=== PATIENT | male | born 1985 | race Caucasian/White ===

== ENCOUNTER 2017-09-03 16:47 | Outpatient (CLI) | payer OTHER | END 2017-09-03 16:48 | disposition home or self-care (01) | LOC: LAB 16:47 | PROVIDERS: ATTEND Nurse Practitioner Obstetrics & Gynecology | DX: Z01.89 Encounter for other specified special examinations (principal) | CPT/HCPCS: 36415; 81220; 81599 ==

== ENCOUNTER 2018-04-01 18:52 | Emergency (ER) | payer OTHER ==
[2018-04-01] MEDS ORDERED: ASPIRIN CHEW 81 MG TABLET PO STA (20:08)
[2018-04-01] MEDS ORDERED: SODIUM CHLORIDE 0.9% 1,000 ML IV ONE (20:08)
--- NOTE | 2018-04-01 20:38 | XRAY Report ---
Procedure Date: 04/01/2018 Accession Number: [id number] / [id number] Procedure: XR - Chest 2 View X-Ray CPT Code: 23684 FULL RESULT: EXAM: CHEST RADIOGRAPHY EXAM DATE: 04/01/2018 08:24 PM. CLINICAL HISTORY: CP. COMPARISON: None. TECHNIQUE: 2 views. FINDINGS: Lungs/Pleura: No dense consolidation. No large effusion or pneumothorax. No pulmonary edema. Mediastinum: Heart and mediastinal contours are unremarkable. Other: None. IMPRESSION: No acute radiographic pulmonary abnormalities. RADIA
[2018-04-01 20:39] LABS: BASOPHILS # (AUTO) 0.1 10^3/uL (0.0-0.1); BASOPHILS % (AUTO) 0.6 %; EOSINOPHILS % (AUTO) 0.2 %; HGB - HEMOGLOBIN 16.5 g/dL (14.0-18.0); LYMPHOCYTES % (AUTO) 22.8 %; MEAN CORPUSCULAR HEMOGLOBIN 30.2 pg (27.0-31.0); MEAN CORPUSCULAR HGB CONC 34.4 g/dL (32.0-36.0); MEAN PLATELET VOLUME 7.6 fL (7.4-11.4); MONOCYTES # (AUTO) 0.4 10^3/uL (0.0-1.0); MONOCYTES % (AUTO) 4.7 %; NEUTROPHILS # (AUTO) 6.4 10^3/uL (1.5-6.6); NEUTROPHILS % (AUTO) 71.7 %; PLT - PLATELET COUNT 239 10^3/uL (130-450); RED BLOOD COUNT 5.46 10^6/uL (4.70-6.10); RED CELL DISTRIBUTION WIDTH 13.7 % (12.0-15.0)
[2018-04-01 20:54] LABS: ALBUMIN 4.7 g/dL (3.2-5.5); ALBUMIN/GLOBULIN RATIO 1.4 (1.0-2.2); BILIRUBIN,TOTAL 1.2 mg/dL (0.2-1.0); CALCIUM 9.4 mg/dL (8.5-10.3); CREATININE 0.9 mg/dL (0.6-1.2); TOTAL PROTEIN 8.1 g/dL (6.7-8.2)
--- NOTE | 2018-04-01 22:08 | ED Physician Documentation ---
History of Present Illness - Stated complaint Stated Complaint: CHEST PX - Chief complaint Chief Complaint: Cardiac - History obtained from History obtained from: Patient - Additonal information Additional information: 32-year-old male presents the emergency department with 2 days of chest pressure. The patient's symptoms started at rest. The patient's symptoms have worsened today and the patient reports episodes of feeling dizzy and short of breath. The patient denies radiation of the pain. No relieving factors or specific triggering factors. The patient denies abdominal pain. No recent dyspnea on exertion or URI symptoms. Symptoms are described as moderate. No other associated symptoms Review of Systems Constitutional: denies: Fever, Chills Eyes: denies: Discharge Ears: denies: Ear pain Nose: denies: Congestion Throat: denies: Sore throat Cardiac: reports: Chest pain / pressure. denies: Pedal edema Respiratory: reports: Dyspnea. denies: Cough GI: denies: Abdominal Pain : denies: Dysuria Skin: denies: Rash Musculoskeletal: denies: Neck pain Neurologic: denies: Generalized weakness, Headache Immunocompromised: denies: Chemotherapy PD PAST MEDICAL HISTORY - Past Medical History Past Medical History: Yes Respiratory: Asthma Endocrine/Autoimmune: None GI: None : None Psych: None Musculoskeletal: None - Present Medications Home Medications: Ambulatory Orders Medication Instructions Recorded Confirmed No Known Home Medications [No 04/01/18 04/01/18 Known Home Medications] - Allergies Allergies/Adverse Reactions: Allergies Allergy/AdvReac Type Severity Reaction Status Date / Time No Known Drug Allergies Allergy Verified 04/01/18 19:04 - Social History Does the pt smoke?: No Smoking Status: Never smoker Does the pt drink ETOH?: Yes ETOH Use: Beer, Liquor Does the pt have substance abuse?: No Substance Use and Type: Marijuana - Immunizations Immunizations: TDAP current <10years PD ED PE NORMAL - General General: Alert and oriented X 3, No acute distress, Well developed/nourished - HEENT HEENT: Atraumatic, PERRL, EOMI, Ears normal - Neck Neck: Supple, no meningeal sign - Cardiac Cardiac: RRR, Strong equal pulses - Respiratory Respiratory: No respiratory distress, Clear bilaterally - Abdomen Abdomen: Soft, Non tender, Non distended - Derm Derm: Normal color, No rash - Extremities Extremities: No deformity, No edema - Neuro Neuro: Alert and oriented X 3, Normal speech - Psych Psych: Normal mood Results - Vitals Vitals: Vital Signs - 24 hr 04/01/18 04/01/18 04/01/18 18:59 20:07 22:14 Temperature 36.3 C L Heart Rate 78 66 67 Respiratory 16 20 16 Rate Blood Pressure 143/103 H 134/80 H 144/95 H O2 Saturation 98 100 99 04/01/18 22:25 Temperature Heart Rate 62 Respiratory 16 Rate Blood Pressure 144/95 H O2 Saturation 100 Oxygen O2 Source Room air - EKG (time done) No standard instances Rhythm: NSR Intervals: Normal GA, QRS normal Ischemia: Normal ST segments Other comments: Other comments (Normal sinus rhythm without acute ischemic changes) - Labs Labs: Laboratory Tests 04/01/18 04/01/18 04/01/18 20:30 20:30 20:30 WBC 9.0 RBC 5.46 Hgb 16.5 Hct 48.1 MCV 88.0 MCH 30.2 MCHC 34.4 RDW 13.7 Plt Count 239 MPV 7.6 Neut # (Auto) 6.4 Lymph # (Auto) 2.0 [place] # (Auto) 0.4 Eos # (Auto) 0.0 Baso # (Auto) 0.1 Absolute Nucleated RBC 0.00 Nucleated RBC % 0.0 D-Dimer Sodium 138 Potassium 3.5 Chloride 105 Carbon Dioxide 25 Anion Gap 8.0 BUN 10 Creatinine 0.9 Estimated GFR (MDRD) 99 Glucose 100 Calcium 9.4 Total Bilirubin 1.2 H AST 22 ALT 20 Alkaline Phosphatase 60 Troponin I < 0.04 Total Protein 8.1 Albumin 4.7 Globulin 3.4 Albumin/Globulin Ratio 1.4 Lipase 32 04/01/18 04/01/18 20:30 22:08 WBC RBC Hgb Hct MCV MCH MCHC RDW Plt Count MPV Neut # (Auto) Lymph # (Auto) [place] # (Auto) Eos # (Auto) Baso # (Auto) Absolute Nucleated RBC Nucleated RBC % D-Dimer < 200.0 L Sodium Potassium Chloride Carbon Dioxide Anion Gap BUN Creatinine Estimated GFR (MDRD) Glucose Calcium Total Bilirubin AST ALT Alkaline Phosphatase Troponin I < 0.04 Total Protein Albumin Globulin Albumin/Globulin Ratio Lipase - Rads (name of study) CXR Radiology: Final report received PD MEDICAL DECISION MAKING - ED course ED course: The patient's workup included 2 EKGs both of which were nonischemic, 2 negative troponins, negative d-dimer, negative chest x-ray. The patient's heart score places him into a low risk category and the patient appears appropriate for discharge and further workup as an outpatient. I advised that the patient would benefit from an outpatient stress test and echocardiogram. The patient understands and agrees. I discussed warning signs and recommended returning to the emergency department immediately for worsening or any concerns - Sepsis Event Vital Signs: Vital Signs - 24 hr 04/01/18 04/01/18 04/01/18 18:59 20:07 22:14 Temperature 36.3 C L Heart Rate 78 66 67 Respiratory 16 20 16 Rate Blood Pressure 143/103 H 134/80 H 144/95 H O2 Saturation 98 100 99 04/01/18 22:25 Temperature Heart Rate 62 Respiratory 16 Rate Blood Pressure 144/95 H O2 Saturation 100 Oxygen O2 Source Room air Departure - Departure Disposition: 01 Home, Self Care Clinical Impression: Chest pain Qualifiers: Chest pain type: unspecified Qualified Code(s): R07.9 - Chest pain, unspecified Condition: Good Instructions: ED Chest Pain [facility] Comments: Please follow-up with your primary care physician on Wednesday for recheck. Please asked them to arrange for an outpatient echocardiogram and stress test to further evaluate your symptoms. Please return to the emergency department immediately for worsening symptoms or any concerns
[2018-04-01 22:15] VITALS: BP 144/95
== END 2018-04-01 22:45 | disposition home or self-care (01) ==
LOC: ED 18:52
DX: R07.9 Chest pain, unspecified (principal)
CPT/HCPCS: 36415; 71046; 80053; 83690; 84484; 85025; 85379; 93005; 96360; 96361; 99284; A9270

== ENCOUNTER 2020-03-11 14:40 | Outpatient (CLI) | payer OTHER ==
[2020-03-11 20:03] LABS: BASOPHILS % (AUTO) 0.5 %; EOSINOPHILS # (AUTO) 0.1 10^3/uL (0.0-0.7); EOSINOPHILS % (AUTO) 1.5 %; HGB - HEMOGLOBIN 16.6 g/dL (14.0-18.0); LYMPHOCYTES # (AUTO) 2.4 10^3/uL (1.5-3.5); LYMPHOCYTES % (AUTO) 35.4 %; MEAN CORPUSCULAR HEMOGLOBIN 30.1 pg (27.0-31.0); MEAN CORPUSCULAR HGB CONC 34.2 g/dL (32.0-36.0); MEAN CORPUSCULAR VOLUME 87.9 fL (80.0-94.0); MEAN PLATELET VOLUME 9.9 fL (7.4-11.4); MONOCYTES # (AUTO) 0.5 10^3/uL (0.0-1.0); MONOCYTES % (AUTO) 7.4 %; NEUTROPHILS # (AUTO) 3.7 10^3/uL (1.5-6.6); NEUTROPHILS % (AUTO) 54.9 %; PLT - PLATELET COUNT 245 10^3/uL (130-450); RED BLOOD COUNT 5.52 10^6/uL (4.70-6.10); RED CELL DISTRIBUTION WIDTH 13.3 % (12.0-15.0); WHITE BLOOD COUNT 6.6 x10^3/uL (4.8-10.8)
[2020-03-11 20:22] LABS: ALBUMIN 4.7 g/dL (3.2-5.5); ALBUMIN/GLOBULIN RATIO 1.5 (1.0-2.2); BILIRUBIN,TOTAL 1.1 mg/dL (0.2-1.0); CALCIUM 9.6 mg/dL (8.5-10.3); MAGNESIUM 2.3 mg/dL (1.7-2.8); TOTAL PROTEIN 7.8 g/dL (6.7-8.2)
== END 2020-03-11 14:41 | disposition home or self-care (01) ==
LOC: LAB.S 14:40
PROVIDERS: ATTEND Physician Assistant Medical
DX: R07.89 Other chest pain (principal)
CPT/HCPCS: 36415; 80053; 83735; 84443; 85025

== ENCOUNTER 2020-03-11 17:21 | Outpatient (CLI) | payer OTHER ==
--- NOTE | 2020-03-11 17:22 | XRAY Report ---
PROCEDURE: Chest 2 View X-Ray INDICATIONS: ATYPICAL CHEST PAIN TECHNIQUE: 2 view(s) of the chest. COMPARISON: Chest x-ray 04/01/2018 FINDINGS: Surgical changes and devices: None. Lungs and pleura: No pleural effusions or pneumothorax. Lungs are clear. Mediastinum: Mediastinal contours are normal. Heart size is normal. Bones and chest wall: No suspicious bony abnormalities. Soft tissues appear unremarkable. IMPRESSION: No acute pulmonary process. Reviewed by: Jossie Miller MD on 03/11/2020 5:21 PM PDT Approved by: Jossie Miller MD on 03/11/2020 5:21 PM PDT Station ID: [id number]
== END 2020-03-11 23:59 | disposition home or self-care (01) ==
LOC: DI.S 17:21
PROVIDERS: ATTEND Physician Assistant Medical
DX: R07.89 Other chest pain (principal); J45.909 Unspecified asthma, uncomplicated; R07.9 Chest pain, unspecified
CPT/HCPCS: 36415; 71046; 80053; 83735; 84443; 85025

== ENCOUNTER 2020-05-20 09:04 | Outpatient (CLI) | payer OTHER ==
[2020-05-20 15:32] LABS: CHOL/HDL RATIO 4.3 (<5.0); CHOLESTEROL 204 mg/dL; HDL CHOLESTEROL 47 mg/dL; LDL CHOLESTEROL,CALCULATED 137 mg/dL; LDL/HDL RATIO 2.9 (<3.6); VLDL CHOLESTEROL 20 mg/dL
== END 2020-05-20 09:05 | disposition home or self-care (01) ==
LOC: LAB.S 09:04
PROVIDERS: ATTEND Physician Assistant
DX: Z83.49 Family history of other endocrine, nutritional and metabolic diseases (principal); Z82.49 Family history of ischemic heart disease and other diseases of the circulatory system
CPT/HCPCS: 36415; 80061; 83721

== ENCOUNTER 2021-08-12 08:00 | Outpatient (CLI) | payer OTHER ==
--- NOTE | 2021-08-12 17:43 | XRAY Report ---
PROCEDURE: Cervical Spine 2 View INDICATIONS: NUMBNESS AND TINGLING, LEFT ARM TECHNIQUE: 3 view(s) of the cervical spine were acquired. COMPARISON: None. FINDINGS: Bones: No fractures or dislocations to the T1 level. The lateral masses of C1 appear intact on the odontoid view. No suspicious bony lesions. Soft tissues: No prevertebral soft tissue swelling. IMPRESSION: No acute abnormality of the cervical spine Reviewed by: Brian Plummer on 08/12/2021 5:41 PM [facility] Approved by: Brian Plummer on 08/12/2021 5:41 PM [facility] Station ID: [id number]
== END 2021-08-12 23:59 | disposition home or self-care (01) ==
LOC: DI.S 08:00
PROVIDERS: ATTEND Emergency Medicine
DX: R20.0 Anesthesia of skin (principal); R20.2 Paresthesia of skin

== ENCOUNTER 2021-09-02 10:57 | Outpatient (CLI) | payer OTHER ==
--- NOTE | 2021-09-02 17:01 | XRAY Report ---
PROCEDURE: Wrist 3 View RT INDICATIONS: COLLES FX OF R RADIUS TECHNIQUE: 3 views of the wrist were acquired. COMPARISON: 08/30/2021 FINDINGS: Bones: Again noted is impacted and minimally displaced intra-articular fracture involving distal radi us with dorsally displaced fractured fragment. Overall wrist alignment is unchanged from prior study. No new fracture or dislocation. No suspicious bony lesions. Scaphoid view: Scaphoid is intact. Soft tissues: No suspicious soft tissue calcifications. IMPRESSION: Stable appearing minimally displaced and impacted intra-articular fracture of distal radius unchanged from prior study. Reviewed by: Sorin Michael MD on 09/02/2021 4:59 PM PST Approved by: Sorin Michael MD on 09/02/2021 4:59 PM PST Station ID: [id number]
== END 2021-09-02 23:59 | disposition home or self-care (01) ==
LOC: DI.N 10:57
PROVIDERS: ATTEND Physician Assistant
DX: S52.531D Colles' fracture of right radius, subsequent encounter for closed fracture with routine healing (principal)

== ENCOUNTER 2021-09-04 07:41 | Day surgery (SDC) | payer OTHER ==
[2021-09-04] MEDS ORDERED: CELECOXIB 100 MG CAPSULE PO ONE (07:56)
[2021-09-04] MEDS ORDERED: ACETAMINOPHEN 1,000 MG/100 ML 100 ML IV ONE (07:56)
[2021-09-04] MEDS ORDERED: CEFAZOLIN SODIUM IN 0.9 % NACL 2 GM/100 ML BAG IV ONE (07:56)
[2021-09-04] MEDS ORDERED: LACTATED RINGERS 1,000 ML IV ONE (08:13)
[2021-09-04] MEDS ORDERED: KETOROLAC 15 MG/ML VIAL IVP STA (08:27)
[2021-09-04] MEDS ORDERED: oxyCODONE 5 MG TABLET PO PRN (08:27)
[2021-09-04] MEDS ORDERED: HYDROmorphone 0.5 MG/0.5 ML SYRINGE IVP PRN (08:30)
[2021-09-04] MEDS ORDERED: METOCLOPRAMIDE 10 MG/2 ML VIAL IVP PRN (08:30)
[2021-09-04] MEDS ORDERED: fentaNYL 100 MCG/2 ML VIAL IVP PRN (08:30)
[2021-09-04] MEDS ORDERED: NALOXONE 0.4 MG/ML VIAL IVP PRN (08:30)
[2021-09-04] MEDS ORDERED: ATROPINE ABBOJECT 1 MG/10 ML SYRINGE IVP PRN (08:30)
[2021-09-04] MEDS ORDERED: ePHEDrine 50 MG/ML VIAL IVP PRN (08:30)
[2021-09-04] MEDS ORDERED: MORPHINE 2 MG/ML CARPUJECT IVP PRN (08:30)
[2021-09-04] MEDS ORDERED: ONDANSETRON 4 MG/2 ML VIAL IVP PRN (08:30)
--- NOTE | 2021-09-04 08:30 | ANESTHESIA ---
Pre-Anesthesia VS, & Labs - Diagnosis R wrist fracture - Procedure R distal radius pinning Vital Signs: Temp Pulse Resp BP Pulse Ox 36.4 C L 68 16 143/92 H 95 09/04/21 08:13 09/04/21 08:13 09/04/21 08:13 09/04/21 08:13 09/04/21 08:13 Height: 6 ft 4 in Weight (kg): 110 kg Body Mass Index: 29.5 BMI Classification: Overweight - NPO >8 hours Home Medications and Allergies Home Medications: Ambulatory Orders Gabapentin [Neurontin] 600 mg PO DAILY 09/03/21 Losartan Potassium 25 mg PO DAILY 09/03/21 Gabapentin [Neurontin] 600 mg PO DAILY 09/03/21 Losartan Potassium 25 mg PO DAILY 09/03/21 Allergies/Adverse Reactions: Allergies Allergy/AdvReac Type Severity Reaction Status Date / Time No Known Drug Allergies Allergy Verified 08/30/21 16:23 Anes History & Medical History - Anesthetic History Anesthesia Complications: reports: No previous complications Family history of Anesthesia Complications: Denies Family history of Malignant Hyperthermia: Denies - Medical History Cardiovascular: reports: Hypertension Pulmonary: reports: Asthma Gastrointestinal: reports: None Urinary: reports: None Musculoskeletal: reports: None Endocrine/Autoimmune: reports: None Blood Disorders: reports: None Smoking Status: Never smoker Exam General: Alert, Oriented x3, Cooperative Dental: WNL Mouth Openin Fingerbreadth Neck Mobility: Normal Mallampati classification: I Thyromental Distance: 4-6 cm Respiratory: Lungs clear Cardiovascular: Regular rate Plan Anesthesia Type: General, Interscalene Block Regional Block: Per Surgeon's request for Post Op pain control Consent for Procedure(s) Verified and Reviewed: Yes Code Status: Attempt Resuscitation ASA classification: 2-Mild systemic disease Is this case an emergency?: No
[2021-09-04] MEDS ORDERED: BUPIVACAINE 0.5% PF 10 ML VIAL ONE (08:38)
[2021-09-04] MEDS ORDERED: fentaNYL 100 MCG/2 ML VIAL ONE (08:48)
[2021-09-04] MEDS ORDERED: PROPOFOL 200 MG/20 ML VIAL IVP ONE (08:48)
[2021-09-04] MEDS ORDERED: MIDAZOLAM 2 MG/2 ML VIAL ONE (08:48)
[2021-09-04] MEDS ORDERED: DEXAMETHASONE 4 MG/ML VIAL ONE (08:48)
[2021-09-04] MEDS ORDERED: ROPIVACAINE 0.5% PF 20 ML AMPULE ONE (08:49)
[2021-09-04] MEDS ORDERED: LACTATED RINGERS 1,000 ML IV SCH (09:00)
[2021-09-04] MEDS ORDERED: ONDANSETRON 4 MG/2 ML VIAL ONE (09:39)
--- NOTE | 2021-09-04 09:48 | OPERATIVE REPORT ---
Operative Report - General Procedure Date: 09/04/21 Planned Procedure: Closed reduction right distal radius fracture with percutaneous pinning right wrist Pre-Op Diagnosis: Closed, displaced fracture right distal radius Procedure Performed: Closed reduction right distal radius with percutaneous pinning right wrist Post Op Diagnosis: Same as preoperative diagnosis - Procedure Note Primary Surgeon: Wilfrido Garcia MD Secondary Surgeon: Akira KEITA Anesthesia Provider: Mila Gonzalez CRNA Anesthesia Technique: MAC, Regional block Estimated Blood Loss (mL): 1 Indications: This is a 36-year-old man, [id number] with a history of fall and injury to right distal radius. He had a significantly displaced right distal radius fracture. This was treated with a closed reduction in the emergency room with marked improvement in alignment. He is placed in a splint. On follow-up radiographs there was some early loss the reduction to his right distal radius fracture. The fracture was primarily extra-articular but there might have been a intra-articular component as well in the radial lunate and radial ulnar region. Findings: His displaced fracture of the right distal radius seem to align well with traction to the right forearm with some palmar flexion and ulnar deviation. The radiocarpal joint. Congruent and the radial ulnar joint. Complications: None - Other Other Information/Narrative: The patient was brought to the operating room and was placed in a supine position with the right arm on a arm extension table. He received a regional block with supplemental sedation. The right upper extremity was prepped and draped in a sterile manner in the usual fashion. The C-arm image intensifier was utilized and covered with a sterile drape. A timeout procedure was performed by the entire operating room team and all were in agreement. Finger traps were applied to all 5 fingers and a traction bow as well. Longitudinal traction was applied, direct manipulation of the fracture site over a sterile bump. The C-arm image intensifier showed good alignment and a percutaneous pinning was performed with 0.062 K wires. The bare area of the radial styloid was engaged and pin was inserted from the styloid across the fracture to achieve bicortical fixation. An additional K wire from the radial styloid was also inserted to provide 2 bicortical K wires from the radial styloid. 1 additional K wire were inserted from the ulnar corner of the distal radius distally and this was driven from distal to proximal and ulnar to radial. Biplanar and oblique imaging was obtained and there was good alignment of the fixation and fracture. The K wires were cut external to skin and covered with sterile balls. A well-padded short arm fiberglass splint was applied with gauze padding around the K wires. He tolerated the procedure well. No tourniquet was utilized.A physician admissions assistant was utilized and felt to be medically necessary to help with reduction and traction of the fracture of the right distal radius. The physician admissions assistant also applied the short arm fiberglass splint.
[2021-09-04] MEDS ORDERED: LACTATED RINGERS 200 ML IV ONE (09:59)
--- NOTE | 2021-09-04 10:11 | OPERATIVE REPORT ---
Operative Report - General Procedure Date: 09/04/21
[2021-09-04 11:02] VITALS: BP 130/86
--- NOTE | 2021-09-04 13:06 | ANESTHESIA POST OP EVALUATION ---
Anesthesia Post Eval - Post Anesthesia Eval Vitals: Last Vital Signs Temp 36.3 C L 09/04/21 10:50 Pulse 58 L 09/04/21 10:50 Resp 14 09/04/21 10:50 BP 130/86 H 09/04/21 10:50 Pulse Ox 96 09/04/21 10:50 CV Function Including HR & BP: Stable Pain Control: Satisfactory Nausea & Vomiting: Negative Mental Status: Baseline Respiratory Status: Airway Patent Hydration Status: Satisfactory Anesthesia Complications: None
--- NOTE | 2021-09-04 17:15 | XRAY Report ---
PROCEDURE: OR C-Arm Procedure INDICATIONS: closed reduction, perc pinning distal radius fx TECHNIQUE: 2 intraoperative images were acquired. COMPARISON: None. FINDINGS: Intraoperative fluoroscopic images demonstrate distal radial pin fixation. There is good anatomic ali gnment. IMPRESSION: Distal radial fixation. Reviewed by: Jossie Miller MD on 09/04/2021 5:14 PM PST Approved by: Jossie Miller MD on 09/04/2021 5:14 PM [facility] Station ID: [id number]
== END 2021-09-04 07:42 | disposition home or self-care (01) ==
LOC: SDS 07:41
PROVIDERS: ATTEND Orthopaedic Surgery
DX: S52.531A Colles' fracture of right radius, initial encounter for closed fracture (principal); Z87.891 Personal history of nicotine dependence
CPT/HCPCS: 25606; A9270; C1713; J0131; J0690; J7120

== ENCOUNTER 2021-09-24 13:34 | Outpatient (CLI) | payer OTHER ==
--- NOTE | 2021-09-24 17:44 | XRAY Report ---
PROCEDURE: Wrist 3 View RT INDICATIONS: F/U FX OF RIGHT RADIUS TECHNIQUE: 3 views of the wrist were acquired. COMPARISON: 09/02/2021 FINDINGS: Bones: 3 K wires have been placed for internal fixation of distal radius fracture.. Distal radius fra cture is in near-anatomic alignment. Soft tissues: No suspicious soft tissue calcifications. IMPRESSION: Distal radius fracture in near-anatomic alignment following internal fixation. Reviewed by: Chiara Langley MD, PhD on 09/24/2021 5:42 PM PST Approved by: Chiara Langley MD, PhD on 09/24/2021 5:42 PM PST Station ID: [id number]
== END 2021-09-24 23:59 | disposition home or self-care (01) ==
LOC: DI.S 13:34
PROVIDERS: ATTEND Physician Assistant Medical
DX: S52.531D Colles' fracture of right radius, subsequent encounter for closed fracture with routine healing (principal)

== ENCOUNTER 2021-09-26 14:10 | Outpatient (CLI) | payer OTHER ==
[2021-09-26 19:52] LABS: BASOPHILS # (AUTO) 0.1 10^3/uL (0.0-0.1); BASOPHILS % (AUTO) 1.2 %; EOSINOPHILS % (AUTO) 0.7 %; HCT - HEMATOCRIT 44.2 % (42.0-52.0); HGB - HEMOGLOBIN 15.6 g/dL (14.0-18.0); LYMPHOCYTES # (AUTO) 2.5 10^3/uL (1.5-3.5); LYMPHOCYTES % (AUTO) 41.9 %; MEAN CORPUSCULAR HEMOGLOBIN 30.9 pg (27.0-31.0); MEAN CORPUSCULAR HGB CONC 35.3 g/dL (32.0-36.0); MEAN CORPUSCULAR VOLUME 87.5 fL (80.0-94.0); MEAN PLATELET VOLUME 10.3 fL (7.4-11.4); MONOCYTES # (AUTO) 0.3 10^3/uL (0.0-1.0); MONOCYTES % (AUTO) 4.3 %; NEUTROPHILS % (AUTO) 51.7 %; PLT - PLATELET COUNT 252 10^3/uL (130-450); RED BLOOD COUNT 5.05 10^6/uL (4.70-6.10); WHITE BLOOD COUNT 5.9 x10^3/uL (4.8-10.8)
[2021-09-26 20:16] LABS: ALBUMIN 4.8 g/dL (3.2-5.5); ALBUMIN/GLOBULIN RATIO 1.8 (1.0-2.2); BILIRUBIN,TOTAL 0.9 mg/dL (0.2-1.0); CALCIUM 9.6 mg/dL (8.5-10.3); CREATININE 0.8 mg/dL (0.6-1.2); POTASSIUM 3.5 mmol/L (3.5-5.0); TOTAL PROTEIN 7.5 g/dL (6.7-8.2)
[2021-09-30 14:06] LABS: ANA SCREEN NEGATIVE (NEGATIVE)
== END 2021-09-26 14:11 | disposition home or self-care (01) ==
LOC: LAB.S 14:10
PROVIDERS: ATTEND Internal Medicine
DX: I10 Essential (primary) hypertension (principal); R20.0 Anesthesia of skin
CPT/HCPCS: 36415; 80053; 82607; 84207; 84425; 85025; 86038

== ENCOUNTER 2021-10-07 11:36 | Outpatient (CLI) | payer OTHER ==
--- NOTE | 2021-10-07 16:30 | XRAY Report ---
PROCEDURE: Wrist 3 View RT INDICATIONS: WRIST FX AND PINNING TECHNIQUE: 3 views of the wrist were acquired. COMPARISON: 09/24/2021 FINDINGS: When comparison with the prior study there is no significant interval change. A lucency representing the transverse fractures of the distal radial metaphysis is not significantly changed in appearance. No additional fracture identified. Radiocarpal alignment is normal. IMPRESSION: No significant interval change. No SPECT evidence of significant interval healing. Reviewed by: Adilson Perales MD on 10/07/2021 4:29 PM PST Approved by: Adilson Perales MD on 10/07/2021 4:29 PM PST Station ID: [id number]
== END 2021-10-07 11:37 | disposition home or self-care (01) ==
LOC: DI.WOS 11:36
PROVIDERS: ATTEND Physician Assistant
DX: S52.531D Colles' fracture of right radius, subsequent encounter for closed fracture with routine healing (principal)

== ENCOUNTER 2021-10-27 08:03 | Outpatient (CLI) | payer OTHER ==
--- NOTE | 2021-10-27 13:55 | XRAY Report ---
PROCEDURE: Wrist 3 View RT INDICATIONS: WRIST FX POST PINN REMOVAL TECHNIQUE: 3 views of the wrist were acquired. COMPARISON: X-ray wrist 09/24/2021, 08/30/2021 FINDINGS: Bones: There is continued interval healing with stable alignment of distal radial fracture. Surgical hardware has been removed. Soft tissues: No suspicious soft tissue calcifications. IMPRESSION: Stable alignment with continued interval healing of distal radial fracture. Reviewed by: Jossie Miller MD on 10/27/2021 1:54 PM PST Approved by: Jossie Miller MD on 10/27/2021 1:54 PM PST Station ID: [id number]
== END 2021-10-27 08:04 | disposition home or self-care (01) ==
LOC: DI.WOS 08:03
PROVIDERS: ATTEND Physician Assistant
DX: S52.531D Colles' fracture of right radius, subsequent encounter for closed fracture with routine healing (principal)

== ENCOUNTER 2021-11-19 08:31 | Outpatient (CLI) | payer OTHER ==
[2021-11-19] MEDS ORDERED: GADOBUTROL 10 MMOL/10 ML VIAL ONE (09:24)
--- NOTE | 2021-11-19 13:41 | MRI Report ---
PROCEDURE: Brain W/WO INDICATIONS: FACIAL NUMBNESS CONTRAST: IV CONTRAST: Gadavist ml: 10 TECHNIQUE: Noncontrast axial T1 spin echo, axial T2 fast spin echo, sagittal and axial FLAIR, coronal T2 fast sp in echo, axial gradient echo, axial diffusion and ADC through the brain. After the administration of contrast, axial and coronal T1 spin echo with fat saturation through the brain. COMPARISON: None. FINDINGS: Image quality: Excellent. CSF spaces: Basal cisterns are patent. No extra-axial fluid collections. Ventricles are normal in size and shape. Brain: No midline shift. No intracranial bleeds or masses. No abnormal intracranial enhancement. There is cerebral volume loss for age. Venous angioma traverses the right rowell radiata. There is p eriventricular white matter chronic small vessel ischemic change. The brainstem appears normal. Dif fusion-weighted images demonstrate no acute ischemic insults. No chronic ischemic insults. Normal i ntravascular flow voids are present. Skull and face: Calvarial marrow is normal in signal. Orbits appear normal. Sinuses: Sinuses and mastoids appear clear. IMPRESSION: 1. No explanation for facial numbness. 2. No acute process. No recent infarct. Reviewed by: Rachid Morales MD on 11/19/2021 1:40 PM PDT Approved by: Rachid Morales MD on 11/19/2021 1:40 PM PDT Station ID: [id number]
[2021-11-19] MEDS ORDERED: GADOBUTROL 10 MMOL/10 ML VIAL IVP ONE (15:28)
== END 2021-11-19 08:32 | disposition home or self-care (01) ==
LOC: DI 08:31
PROVIDERS: ATTEND Internal Medicine
DX: R20.0 Anesthesia of skin (principal)
CPT/HCPCS: 70553; A9585